=== PATIENT | male | born 1990 | race Caucasian/White ===

== ENCOUNTER 2022-10-22 19:33 | Emergency (ER) | payer SELFPAY ==
[2022-10-22 19:32] VITALS: BP 147/97; PULSE 118; RESP 18; TEMP 36.6; O2SAT 95
[2022-10-22 19:36] VITALS: BP 151/90; PULSE 108; RESP 20; O2SAT 99
--- NOTE | 2022-10-22 19:36 | ECG_ITS ---
Measurements Intervals Left Hand Rate: 96 P: 61 SC: 129 QRS: 21 QRSD: 100 T: 30 QT: 357 QTc: 453 Interpretive Statements SINUS RHYTHM MINIMAL Q WAVES- LAT/HIGH LAT LEADS BORDERLINE ECG NO PREVIOUS ECG AVAILABLE FOR COMPARISON Electronically Signed On 10-22-2022 21:54:47 CDT by Troy Gilmore D.O.
--- NOTE | 2022-10-22 19:51 | ED.GENADULT ---
HPI - General Adult General Chief complaint: Overdose Stated complaint: tachycardia Time Seen by Provider: 10/22/22 19:38 History of Present Illness HPI narrative: 32-year-old male presented the emergency department for evaluation for anxiety and tachycardia and altered mental status after methamphetamine use. Patient states that he does use methamphetamine almost daily. Patient states he used today at approximately 3:00. Patient states that he felt foggy and confused after using the meth and he was very diaphoretic. Patient did call EMS for the specific reasons. When EMS arrived his blood sugar was found to be 53 patient was treated with p.o. glucose and upon arrival to the ED patient states he does feel improved. Patient is still tachycardic but denies any chest pain or shortness of breath. Patient reports that the sensation of fogginess is improving. Related Data Allergies Allergy/AdvReac Type Severity Reaction Status Date / Time No Known Allergies Allergy Verified 10/22/22 20:00 Review of Systems Review of Systems: All systems reviewed & are unremarkable except as noted in HPI and below Exam Narrative: APPEARANCE: Well appearing, no pain, no distress, well-nourished. HEAD: normocephalic, atraumatic. EYES: PERRLA/EOMI, conjunctivae clear. NOSE: Normal no drainage NECK: Supple. No adenopathy, no masses. RESPIRATORY: Airway patent, respirations nonlabored. Clear to auscultation bilaterally, no rales, rhonchi, wheezing. CARDIOVASCULAR: Regular rate and rhythm without murmurs rubs or gallops. ABDOMINAL: Soft, nontender, nondistended, normal bowel sounds MUSCULOSKELETAL: Moves all extremities. Strength/ROM intact, No edema, No calf tenderness. NEURO: Alert. Cranial nerves II through XII intact. Grossly intact SKIN: Warm, dry. Normal Color Course Course Emergency Course: 32-year-old male presenting to the ED for evaluation of amphetamine ingestion. Differential diagnosis does include intentional or accidental overdose. Patient was treated with IV fluids. Patient is alert and oriented and is able to tolerate p.o. Patient was also treated with 0.5 mg of IV Ativan Patient is much more calm and appropriate. Patient reports he feels he is back to his baseline. Patient does still have some physical agitation but patient is alert and oriented. Patient is no longer tachycardic. Patient was advised to quit taking methamphetamine and patient states he is attempting to do this. Patient denies any intent for self-harm with this and does report that this was for recreation. Vital Signs Vital signs: Vital Signs Temperature 98 F 10/22/22 19:32 Pulse Rate 118 H 10/22/22 19:32 Respiratory Rate 18 10/22/22 19:32 Blood Pressure 147/97 H 10/22/22 19:32 Pulse Oximetry 95 10/22/22 19:32 Temperature 98.9 F 10/22/22 21:30 Pulse Rate 87 10/22/22 22:18 Respiratory Rate 20 10/22/22 22:18 Blood Pressure 140/93 H 10/22/22 22:18 Pulse Oximetry 100 10/22/22 22:18 Medical Decision Making Vital Signs Vital Signs: Vital Signs Temperature 98 F 10/22/22 19:32 Pulse Rate 118 H 10/22/22 19:32 Respiratory Rate 18 10/22/22 19:32 Blood Pressure 147/97 H 10/22/22 19:32 Pulse Oximetry 95 10/22/22 19:32 Temperature 98.9 F 10/22/22 21:30 Pulse Rate 87 10/22/22 22:18 Respiratory Rate 20 10/22/22 22:18 Blood Pressure 140/93 H 10/22/22 22:18 Pulse Oximetry 100 10/22/22 22:18 Lab Data Lab results reviewed: Yes I reviewed the patient's lab results. 10/22/22 19:44 10/22/22 19:44 Labs: Lab Results 10/22/22 10/22/22 10/22/22 Range/Units 19:44 19:44 19:49 WBC 7.1 (4.5-10.0) K/mm3 RBC 5.08 (4.6-6.20) M/mm3 Hgb 15.2 (14.0-18.0) g/dL Hct 45.8 (42.0-52.0) % MCV 90.2 (80-100) fl MCH 29.9 (26-34) pg MCHC 33.2 (32-36) g/dl RDW 12.5 (11.5-14.5) % Plt Count 292 (150-375) k/mm3 MPV 9.4 (7.4-10.4) fl I
[2022-10-22 19:53] LABS: Glucose Point of Care 118 mg/dl (65-105)
[2022-10-22 19:55] LABS: Basophils Absolute Auto 0.1 K/mm3 (0.0-0.1); Basophils Percent Auto 0.7 % (0.2-1.2); Eosinophils Absolute Auto 0.3 K/mm3 (0-0.3); Eosinophils Percent Auto 3.5 % (0-4.4); Hematocrit 45.8 % (42.0-52.0); Hemoglobin 15.2 g/dL (14.0-18.0); Immature Granulocyte Absolute 0.02 K/mm3 (0.00-0.031); Immature Granulocyte Percent A 0.3 % (0-0.5); Lymphocytes Absolute Auto 2.73 K/mm3 (0.9-3.2); Lymphocytes Percent Auto 38.3 % (18.3-44.2); Mean Corpuscular HGB Conc 33.2 g/dl (32-36); Mean Corpuscular Hemoglobin 29.9 pg (26-34); Mean Corpuscular Volume 90.2 fl (80-100); Mean Platelet Volume 9.4 fl (7.4-10.4); Monocytes Absolute Auto 0.6 K/mm3 (0.1-0.6); Monocytes Percent Auto 8.1 % (2.6-8.5); Neutrophils Absolute Auto 3.5 K/mm3 (1.3-6.7); Neutrophils Percent Auto 49.1 % (45.5-73.1); Platelet Count Result 292 k/mm3 (150-375); Red Blood Count 5.08 M/mm3 (4.6-6.20); Red Cell Distribution Width 12.5 % (11.5-14.5); White Blood Count 7.1 K/mm3 (4.5-10.0)
[2022-10-22] MEDS: SODIUM CHLORIDE 0.9% IV 1,000 ML 999 ML IV CONT (20:00)
[2022-10-22] MEDS: LORazepam INJ (*CRX) 2 MG/ML VIAL 0.5 MG IV PUSH (20:01)
[2022-10-22 20:05] LABS: Appearance Urine Cloudy (Clear); Bacteria Urine 1+ /hpf; Bilirubin Urine Negative (Negative); Blood Urine Negative (Negative); Color Urine Dark Yellow (Yellow); Glucose Urine UA Negative (Negative); Ketones Urine Trace mg/dL (Negative); Leukocyte Esterase Ur 1+ LEU/UL (Negative); Need Manual Microscopic Reviewed; Nitrate Urine Negative (Negative); Non Pathogenic Casts >20; Protein Urine 2+ mg/dL (Negative); RBC Urine 0-2 /hpf (0-2); Specific Grav Ur 1.031 (1.001-1.035); Squamous Epithelial Cell Urine Occasional /hpf (Few); WBC Urine 21-50 /hpf
[2022-10-22 20:06] VITALS: RESP 18
[2022-10-22 20:09] LABS: Add Urine Microscopic? YES
[2022-10-22 20:11] LABS: Alanine Aminotransferase 48 U/L (6-50); Alkaline Phosphatase 102 U/L (38-126); Anion Gap 11 mmol/L (8-16); Aspartate Amino Transferase 51 U/L (17-59); Bilirubin,Total 0.8 mg/dL (0.2-1.3); Blood Urea Nitrogen 21 mg/dL (9-20); Calcium 9.5 mg/dL (8.4-10.2); Carbon Dioxide 26 mmol/L (22-30); Chloride 105 mmol/L (98-107); Estimated CRCL calculation 98 ml/min; Estimated Glomerular Filt Rate > 60; Glucose 91 mg/dL (65-110); Potassium 3.9 mmol/L (3.4-5.0); Sodium 142 mmol/L (137-145)
[2022-10-22 20:38] LABS: Barbiturate Screen Urine Negative (Negative); Benzodiazepines Screen Urine Negative (Negative)
[2022-10-22 21:06] LABS: Amphetamine Screen Urine Positive (Negative); Cannabinoid Screen Urine Negative (Negative); Cocaine Screen Urine Negative (Negative); Methadone Screen Urine Negative (Negative); Opiate Screen Urine Negative (Negative); Phencyclidine Screen Urine Negative (Negative)
[2022-10-22 21:30] VITALS: BP 140/90; PULSE 101; RESP 22; TEMP 37.2; O2SAT 99
[2022-10-22 22:18] VITALS: BP 140/93; PULSE 87; RESP 20; O2SAT 100
== END 2022-10-22 22:20 | disposition home or self-care (01) ==
PROVIDERS: Emergency Medicine; Emergency Provider Emergency Medicine
DX: F15.10 Other stimulant abuse, uncomplicated (principal); R94.31 Abnormal electrocardiogram [ECG] [EKG]
CPT/HCPCS: 36415; 80053; 80307; 81001; 82948; 85025; 87086; 93005; 96361; 96374; 99284; J2060; J7030